=== PATIENT | female | born 1950 | race Caucasian/White ===

== ENCOUNTER 2022-10-23 02:37 | Inpatient (IN) | payer MEDICARE, BC ==
[2022-10-23] MEDS ORDERED: Ondansetron PF 4 MG/2 ML Vial ONE (03:06)
[2022-10-23 03:40] LABS: #Eosinphils 0.1 thou/uL (0.0-0.7); #Lymphocytes 0.9 thou/uL (1.20-3.40); #Monocytes 0.7 thou/uL (0.11-0.59); #Neutrophils 7.5 thou/uL (1.40-6.50); %Basophils 0.3 % (0.0-1.0); %Eosinophils 0.6 % (0.0-10.0); %Lymphocytes 9.5 % (21.0-51.0); %Monocytes 7.3 % (0.0-10.0); %Neutrophils 82.3 % (42.0-75.0); Hemoglobin 12.9 g/dL (12.0-16.0); Mean Corpuscular HGB CONC 34.9 g/dL (32.0-36.0); Mean Corpuscular Hemoglobin 34.2 pg (27.0-31.0); Platelet Count 340 10x3/uL (130-400); RBC Distribution Width 13.9 % (11.5-14.5); Red Blood Cell (RBC) Count 3.76 mill/uL (4.20-5.40); White Blood Cell (WBC) Count 9.2 10x3/uL (4.8-10.8)
[2022-10-23 03:57] LABS: ALT (SGPT) 82 U/L (8-55); AST (SGOT) 66 U/L (5-34); Albumin 3.1 g/dL (3.4-4.8); Alkaline Phosphatase 199 U/L (40-110); Anion Gap 20 mmol/L (10-20); BUN (Urea Nitrogen) 9 mg/dL (9.8-20.1); Bilirubin, Total 0.8 mg/dL (0.2-1.2); Calc. Creatinine Clearance 0 mL/min (70-130); Calcium 8.2 mg/dL (7.8-10.44); Carbon Dioxide 12 mmol/L (23-31); Chloride 107 mmol/L (98-107); Estimated GFR 78; Globulin 2.4 g/dL (2.4-3.5); Glucose 184 mg/dL (83-110); Protein, Total 5.5 g/dL (5.8-8.1); Sodium 136 mmol/L (136-145)
[2022-10-23 04:09] LABS: Potassium 2.6 mmol/L (3.5-5.1)
[2022-10-23] MEDS ORDERED: Potassium Chloride 20 MEQ/100 ML PREMIX BAG ONE (04:30)
[2022-10-23] MEDS ORDERED: Potassium Chloride 20 MEQ TAB ONE (05:19)
[2022-10-23] MEDS ORDERED: Dextrose 5% in Water 1,000 ML IV PRN (05:37)
[2022-10-23] MEDS ORDERED: Dextrose 50% Abboject 50 ML SYRINGE SLOW IVP PRN (05:37)
[2022-10-23 06:08] LABS: Magnesium 1.8 mg/dL (1.6-2.6); Phosphorus 1.8 mg/dL (2.3-4.7)
[2022-10-23 06:32] LABS: Critical Call Chem Troponin I RESULT DECREASING; Troponin I 1.544 ng/mL (< 0.028)
[2022-10-23] MEDS ORDERED: Aspirin 325 MG TAB ONE (08:38)
[2022-10-23] MEDS ORDERED: Lisinopril 10 MG TAB ONE (08:38)
[2022-10-23] MEDS ORDERED: Metoprolol Tartrate 25 MG TAB ONE (08:38)
[2022-10-23] MEDS: Aspirin 325 MG TAB PO SCH (08:44)
[2022-10-23] MEDS: Lisinopril 5 MG TAB PO SCH (08:44)
[2022-10-23] MEDS: Metoprolol Tartrate 25 MG TAB PO SCH ×2 (08:45→20:42)
[2022-10-23] MEDS: Empagliflozin 10 MG TAB PO SCH (09:10)
[2022-10-23] MEDS: Escitalopram Oxalate 10 mg Tablet PO SCH (09:10)
[2022-10-23] MEDS: Alogliptin 25 MG TAB PO SCH (09:11)
[2022-10-23] MEDS: Amiodarone 200 MG TAB PO SCH ×2 (09:11→20:42)
[2022-10-23 10:08] LABS: Critical Call Chem Troponin I DECREASE; Troponin I 1.457 ng/mL (< 0.028)
[2022-10-23 12:49] LABS: Anion Gap 16 mmol/L (10-20); BUN (Urea Nitrogen) 8 mg/dL (9.8-20.1); Calc. Creatinine Clearance 62 mL/min (70-130); Calcium 8.3 mg/dL (7.8-10.44); Carbon Dioxide 14 mmol/L (23-31); Chloride 108 mmol/L (98-107); Estimated GFR 75; Glucose 189 mg/dL (83-110); Potassium 3.3 mmol/L (3.5-5.1); Sodium 135 mmol/L (136-145)
[2022-10-23 14:15] VITALS: BMI 30.4
[2022-10-23] MEDS: Atorvastatin Calcium 40 MG TAB PO SCH (20:42)
[2022-10-24] MEDS ORDERED: Nitroglycerin 2% Ointment 1 INCH/1 GM Packet TOP PRN ×2 (00:39→00:48)
[2022-10-24] MEDS: traMADol HCl 50 MG TAB PO PRN ×2 (01:03→14:17)
[2022-10-24] MEDS: Acetaminophen 325 MG TAB PO PRN ×2 (04:24→12:10)
[2022-10-24 05:16] LABS: #Eosinphils 0.1 thou/uL (0.0-0.7); #Lymphocytes 1.3 thou/uL (1.20-3.40); #Monocytes 0.9 thou/uL (0.11-0.59); #Neutrophils 6.3 thou/uL (1.40-6.50); %Basophils 0.1 % (0.0-1.0); %Eosinophils 0.9 % (0.0-10.0); %Lymphocytes 15.5 % (21.0-51.0); %Monocytes 10.8 % (0.0-10.0); %Neutrophils 72.7 % (42.0-75.0); Hemoglobin 11.5 g/dL (12.0-16.0); Mean Corpuscular HGB CONC 35.4 g/dL (32.0-36.0); Mean Corpuscular Hemoglobin 34.1 pg (27.0-31.0); Mean Corpuscular Volume 96.3 fl (78.0-98.0); Mean Platelet Volume 7.1 fL (7.4-10.4); Platelet Count 266 10x3/uL (130-400); RBC Distribution Width 13.8 % (11.5-14.5); Red Blood Cell (RBC) Count 3.36 mill/uL (4.20-5.40); White Blood Cell (WBC) Count 8.6 10x3/uL (4.8-10.8)
[2022-10-24 05:39] LABS: Anion Gap 14 mmol/L (10-20); BUN (Urea Nitrogen) 7 mg/dL (9.8-20.1); Calc. Creatinine Clearance 77 mL/min (70-130); Calcium 7.9 mg/dL (7.8-10.44); Carbon Dioxide 19 mmol/L (23-31); Chloride 105 mmol/L (98-107); Estimated GFR 85; Glucose 161 mg/dL (83-110); Sodium 135 mmol/L (136-145)
[2022-10-24 05:42] LABS: Potassium 2.6 mmol/L (3.5-5.1)
[2022-10-24] MEDS ORDERED: Electrolyte Replacement Protocol FS SCH (06:00)
[2022-10-24 06:17] LABS: Magnesium 1.8 mg/dL (1.6-2.6)
[2022-10-24] MEDS ORDERED: Magnesium 2 GM/50 ML(in water) 2 GM in Premix Bag 1 BAG IVPB SCH (08:00)
[2022-10-24] MEDS ORDERED: Amiodarone 450 MG in Dextrose 5% in Water 250 ML IVPB SCH (08:15)
[2022-10-24] MEDS: Aspirin 325 MG TAB PO SCH (09:19)
[2022-10-24] MEDS: Empagliflozin 10 MG TAB PO SCH (09:20)
[2022-10-24] MEDS: Alogliptin 25 MG TAB PO SCH (09:20)
[2022-10-24] MEDS: Escitalopram Oxalate 10 mg Tablet PO SCH (09:20)
[2022-10-24] MEDS: Lisinopril 5 MG TAB PO SCH (09:21)
[2022-10-24] MEDS: Metoprolol Tartrate 25 MG TAB PO SCH ×2 (09:22→21:51)
[2022-10-24] MEDS: Potassium Chloride 20 MEQ TAB PO SCH ×2 (09:24→11:54)
[2022-10-24] MEDS: PHOS-NAK 1 PKT PACK PO SCH ×2 (09:25→11:54)
[2022-10-24] MEDS: Amiodarone 200 MG TAB PO SCH (09:27)
[2022-10-24] MEDS: Amiodarone 450 MG, Admixture Fee 1 EACH in Dextrose 5% in Water 250 ML IVPB SCH ×2 (10:05→17:02)
[2022-10-24] MEDS: Ondansetron PF 4 MG/2 ML Vial IVP PRN (14:22)
[2022-10-24] MEDS: Atorvastatin Calcium 40 MG TAB PO SCH (21:50)
[2022-10-25 05:35] LABS: Magnesium 2.3 mg/dL (1.6-2.6)
[2022-10-25] MEDS: Metoprolol Tartrate 25 MG TAB PO SCH (08:38)
[2022-10-25] MEDS: Aspirin 325 MG TAB PO SCH (08:38)
[2022-10-25] MEDS: Alogliptin 25 MG TAB PO SCH (08:38)
[2022-10-25] MEDS: Empagliflozin 10 MG TAB PO SCH (08:39)
[2022-10-25] MEDS: Lisinopril 5 MG TAB PO SCH (08:39)
[2022-10-25] MEDS: Escitalopram Oxalate 10 mg Tablet PO SCH (08:40)
[2022-10-25] MEDS: Amiodarone 450 MG, Admixture Fee 1 EACH in Dextrose 5% in Water 250 ML IVPB SCH (08:45)
[2022-10-25 10:11] LABS: #Eosinphils 0.1 thou/uL (0.0-0.7); #Lymphocytes 1.1 thou/uL (1.20-3.40); #Monocytes 0.8 thou/uL (0.11-0.59); #Neutrophils 5.8 thou/uL (1.40-6.50); %Basophils 0.2 % (0.0-1.0); %Eosinophils 1.2 % (0.0-10.0); %Lymphocytes 14.5 % (21.0-51.0); %Monocytes 10.1 % (0.0-10.0); Hemoglobin 12.9 g/dL (12.0-16.0); Mean Corpuscular HGB CONC 34.2 g/dL (32.0-36.0); Mean Corpuscular Hemoglobin 33.8 pg (27.0-31.0); Mean Corpuscular Volume 98.8 fl (78.0-98.0); Mean Platelet Volume 7.7 fL (7.4-10.4); Platelet Count 309 10x3/uL (130-400); RBC Distribution Width 14.6 % (11.5-14.5); Red Blood Cell (RBC) Count 3.83 mill/uL (4.20-5.40); White Blood Cell (WBC) Count 7.9 10x3/uL (4.8-10.8)
[2022-10-25] MEDS: Ondansetron PF 4 MG/2 ML Vial IVP PRN (10:16)
[2022-10-25 11:02] LABS: Anion Gap 18 mmol/L (10-20); BUN (Urea Nitrogen) 6 mg/dL (9.8-20.1); Calc. Creatinine Clearance 80 mL/min (70-130); Calcium 8.5 mg/dL (7.8-10.44); Carbon Dioxide 19 mmol/L (23-31); Chloride 103 mmol/L (98-107); Estimated GFR 86; Glucose 158 mg/dL (83-110); Potassium 3.8 mmol/L (3.5-5.1); Sodium 136 mmol/L (136-145)
[2022-10-25] MEDS: HumaLOG 300 UNITS/3 ML VIAL SC PRN ×2 (12:38→17:01)
[2022-10-25] MEDS ORDERED: Dextrose 50% Abboject 50 ML SYRINGE SLOW IVP PRN (13:51)
[2022-10-25] MEDS ORDERED: Dextrose 5% in Water 1,000 ML IV PRN (13:51)
[2022-10-25] MEDS ORDERED: HumaLOG 300 UNITS/3 ML VIAL SC PRN (13:51)
[2022-10-25] MEDS ORDERED: Digoxin 0.5 MG/2 ML AMP SLOW IVP SCH ×2 (16:30→19:00)
[2022-10-25] MEDS: Metoprolol Tartrate 50 MG TAB PO SCH (21:22)
[2022-10-25] MEDS: Atorvastatin Calcium 40 MG TAB PO SCH (21:22)
[2022-10-26] MEDS ORDERED: Magnesium 2 GM/50 ML(in water) 2 GM in Premix Bag 1 BAG IVPB SCH (08:00)
[2022-10-26] MEDS: Lisinopril 5 MG TAB PO SCH (09:24)
[2022-10-26] MEDS: Alogliptin 25 MG TAB PO SCH (09:24)
[2022-10-26] MEDS: Aspirin 325 MG TAB PO SCH (09:24)
[2022-10-26] MEDS: Escitalopram Oxalate 10 mg Tablet PO SCH (09:24)
[2022-10-26] MEDS: Empagliflozin 10 MG TAB PO SCH (09:25)
[2022-10-26] MEDS: Metoprolol Tartrate 50 MG TAB PO SCH (09:26)
[2022-10-26] MEDS: Ondansetron PF 4 MG/2 ML Vial IVP PRN ×2 (09:29→15:20)
[2022-10-26] MEDS: HumaLOG 300 UNITS/3 ML VIAL SC PRN ×2 (10:48→18:34)
[2022-10-26] MEDS ORDERED: Amiodarone 450 MG in Dextrose 5% in Water 250 ML IVPB SCH (12:00)
[2022-10-26 13:05] LABS: Anion Gap 20 mmol/L (10-20); BUN (Urea Nitrogen) 6 mg/dL (9.8-20.1); Calc. Creatinine Clearance 88 mL/min (70-130); Calcium 8.8 mg/dL (7.8-10.44); Carbon Dioxide 16 mmol/L (23-31); Chloride 103 mmol/L (98-107); Estimated GFR 94; Glucose 164 mg/dL (83-110); Potassium 3.4 mmol/L (3.5-5.1); Sodium 136 mmol/L (136-145)
[2022-10-26] MEDS ORDERED: Potassium Chloride 20 MEQ TAB PO SCH (14:00)
[2022-10-26] MEDS: Atorvastatin Calcium 40 MG TAB PO SCH (20:25)
[2022-10-26] MEDS: Amiodarone 200 MG TAB PO SCH (20:25)
[2022-10-27] MEDS ORDERED: Amiodarone 450 MG, Admixture Fee 1 EACH in Dextrose 5% in Water 250 ML IVPB SCH (01:00)
[2022-10-27 05:14] LABS: Anion Gap 18 mmol/L (10-20); BUN (Urea Nitrogen) 7 mg/dL (9.8-20.1); Calc. Creatinine Clearance 75 mL/min (70-130); Calcium 8.4 mg/dL (7.8-10.44); Carbon Dioxide 18 mmol/L (23-31); Chloride 103 mmol/L (98-107); Estimated GFR 85; Glucose 177 mg/dL (83-110); Potassium 3.7 mmol/L (3.5-5.1); Sodium 135 mmol/L (136-145)
[2022-10-27] MEDS ORDERED: Furosemide 20 MG TAB PO SCH (09:00)
[2022-10-27] MEDS: Aspirin 325 MG TAB PO SCH (09:10)
[2022-10-27] MEDS: Carvedilol 6.25 MG TAB PO SCH ×2 (09:10→17:40)
[2022-10-27] MEDS: Alogliptin 25 MG TAB PO SCH (09:10)
[2022-10-27] MEDS: Empagliflozin 10 MG TAB PO SCH (09:11)
[2022-10-27] MEDS: Amiodarone 200 MG TAB PO SCH (09:11)
[2022-10-27] MEDS: Escitalopram Oxalate 10 mg Tablet PO SCH (09:12)
[2022-10-27 16:15] VITALS: TEMP 98.8
[2022-10-27 17:41] VITALS: BP 147/84
[2022-10-29] MEDS ORDERED: Sacubitril 24MG/Valsartan 26 MG TAB PO SCH (09:00)
== END 2022-10-27 18:00 | DRG 308 ==
LOC: SUATTDRO 02:37 → ERS 02:37 → ERHOLD 05:21 → 2NO 13:50 → OBSVTOIN 10-25 11:11
PROVIDERS: ADMIT Family Medicine; ATTEND Internal Medicine
DX: I48.91 Unspecified atrial fibrillation (principal); I50.23 Acute on chronic systolic (congestive) heart failure; Z66 Do not resuscitate; F32.A Depression, unspecified; E87.6 Hypokalemia; I11.0 Hypertensive heart disease with heart failure; I25.10 Atherosclerotic heart disease of native coronary artery without angina pectoris; E11.9 Type 2 diabetes mellitus without complications; E78.5 Hyperlipidemia, unspecified; Z95.1 Presence of aortocoronary bypass graft; Z88.1 Allergy status to other antibiotic agents; Z88.8 Allergy status to other drugs, medicaments and biological substances; Z79.84 Long term (current) use of oral hypoglycemic drugs; Z79.82 Long term (current) use of aspirin; Z79.899 Other long term (current) drug therapy
CPT/HCPCS: 36415; 36416; 71045; 80048; 82553; 83735; 83880; 84100; 84443; 84484; 85025; 93005; 93306; 93798; 96365; 96366; 96372; 96375; 96376; G0378; J0282; J1160; J1650; J1815; J2405; J3475; J3480; J7070